=== PATIENT | female | born 1965 | race Caucasian/White ===

== ENCOUNTER 2022-12-18 17:16 | Observation (INO) ==
[2022-12-18] MEDS ORDERED: PIPERACILLIN/TAZOBACTAM 4.5 GM/120 ML BAG IV ONE (18:46)
[2022-12-18] MEDS ORDERED: SODIUM CHLORIDE 0.9% 1000ML 1,000 ML IV ONE (18:46)
[2022-12-18 18:53] LABS: Basophils # (auto) 0.04 K/uL (0-0.2); Basophils % (auto) 0.3 %; Eosinophils # (auto) 0.02 K/uL (0-0.50); Eosinophils % (auto) 0.2 %; Hematocrit (blood only) 40.4 % (37.0-47.0); Hemoglobin 14.5 g/dl (12.0-16.0); Immature Granulocytes # (auto) 0.04 K/uL (0.01-0.20); Immature Granulocytes % (auto) 0.3 %; Lymphocytes # (auto) 1.55 K/uL (1.2-3.4); Lymphocytes % (auto) 13.2 %; Mean Corpuscular Hemoglobin 31.2 pg (25.0-34.0); Mean Corpuscular Hgb Conc 35.9 g/dL (32.0-36.0); Mean Corpuscular Volume 86.9 fL (80.0-100.0); Mean Platelet Volume 9.6 fL (9.4-12.4); Monocytes # (auto) 0.78 K/uL (0.11-0.59); Monocytes % (auto) 6.6 %; Neutrophils % (auto) 79.4 %; Platelet Count 252 K/uL (130-400); RDW Standard Deviation 38.5 fL (36.4-46.3); Red Blood Count 4.65 M/uL (4.20-5.40); White Blood Count 11.73 K/ul (4.8-10.8)
--- NOTE | 2022-12-18 18:53 | Emergency Department Note ---
History of Present Illness General Chief complaint: Infection Stated complaint: INFECTION S/P LUMPECTOMY Time Seen by Provider: 12/18/22 18:35 Source: patient Mode of arrival: ambulatory Limitations: no limitations History of Present Illness Maximum Pain Intensity: 6 This patient a 57-year-old female who comes in after having a fever and flulike symptoms. She had a lumpectomy 3 weeks ago at [facility] in [place] she had follow-up with her surgeon on December 14 and told things look well Monday night into Monday she had a fever. She had some discharge from the wound site. She does have a history of breast cancer on the right which had surgery and radiation this was diagnosed in October 2022. This is a new diagnosis on the left she has yet to start chemo or radiation but that is the plan. She said kolton t she put some hydrogen peroxide and some clear gauze on it. Her temperature was up to 100.2 and she took ibuprofen and at 8:30 in the morning she felt like she had joint aches all over and she had a headache that got better with her temperature coming down. She went to [facility] and they started her on 2 antibiotics doxycycline and clinda. She took the antibiotics at 1230 and went to bed. She is increasing temperature increasing swelling she says it feels hot in the left breast. It 6 out of 10 at baseline but 8 or 9 out of 10 if palpation or movement. No nausea vomiting she did feel somewhat lightheaded. No chest pain Home Medications Medication Instructions Recorded Confirmed Type bupropion HCl 150 mg tablet,12 hr 150 mg PO BID 12/18/22 12/18/22 History sustained-release cholecalciferol (vitamin D3) 25 0 mcg PO DAILY 12/18/22 12/18/22 History mcg (1,000 unit) capsule (Vitamin D3) escitalopram oxalate 20 mg tablet 20 mg PO DAILY 12/18/22 12/18/22 History (Lexapro) exemestane 25 mg tablet 25 mg PO DAILY 12/18/22 12/18/22 History magnesium citrate 100 mg tablet 0 mg PO DAILY 12/18/22 12/18/22 History trazodone 50 mg tablet 50 mg PO HS 12/18/22 12/18/22 History Allergies Allergy/AdvReac Type Severity Reaction Status Date / Time No Known Allergies Allergy Verified 12/18/22 19:15 Past Med/Surg History Medical History (Updated 12/18/22 @ 23:18 by Brendan Krause MD) Breast cancer Depression Sciatica Surgical History History of lumpectomy Right breast October 2022 Left breast 11/28/2022 Family History Other Cancer Social History (Updated 12/18/22 @ 20:22 by Rosetta Miranda DO) Smoking Status: Never smoker Second Hand Exposure: No; Hx Alcohol Use: Yes Hx Substance Use: No Preferred Language: Greek Communication Ability: Effective 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 Denies history of diabetes or cardiac disease. She is on no blood thinners. Has a history of diverticulosis and abdominal surgery she had a history of MRSA in the past as well. Review of Systems A total of 10 systems reviewed and were otherwise negative Physical Exam Vital Signs Vital Signs - 24 hr 12/18/22 17:33 12/18/22 19:46 12/18/22 20:00 Temperature 37.1 C Temperature Source Temporal Artery Scan Pulse Rate 102 H 82 85 Respiratory Rate 18 20 20 Respiratory Effort / Characteristics Non-Labored Spontaneous Respiratory Depth Normal Respiratory Pattern Regular Blood Pressure 132/84 136/80 Blood Pressure Mean 100 98 Blood Pressure Position Sitting Pulse Oximetry 96 96 97 Oxygen Delivery Method Room Air Room Air Room Air Sepsis Recent Fever Within 48 Hours No Sepsis New/Unexplained Change in Mental Status No Sepsis Action Taken by Nursing No Action Required General: Well developed well nourished middle-age female who appears in no acute distress, breathing comfortably on room air. Normal speech HEENT: Normal cephalic atraumatic. Pupils are equal round and reactive to light. Extraocular movements are intact. Oropharynx is pink with moist mucous membranes. No swelling of the mouth lips or tongue. Neck: Supple with a midline trachea. No meningeal signs or stiffness, no JVD or bruits. No Stridor. Chest (performed in the presence of a hydraulics engineer): Clear to auscultation bilaterally. No wheezes or rhonchi. No increased work of breathing. She has a well-healed healing incision in the left breast. It is very tender is indurated is mildly warm. There is no pus at this point but she says they collected some earlier when she was at [facility] Heart: Regular rate and rhythm without murmurs or gallops. Abdomen: Soft nontender, nondistended without rebound guarding or rigidity. Extremities: No cyanosis clubbing or edema. No calf tenderness or assymetry Spine/Back. Non tender to palpation. No CVA tenderness Skin: Good turgor without rashes. Neurologic exam: Cranial nerves two through 12 are intact. Motor and sensation are intact and symmetrical throughout. Course Administered Medications Bupropion HCl (Bupropion Sr 150 Mg Tabcr) 150 mg PO BID JESUS Stop: 01/17/23 21:41 Last Admin: 12/18/22 23:18 Dose: Not Given Documented By: Ibuprofen (Ibuprofen 600 Mg Tab) 600 mg PO Q6H PRN PRN Reason: Pain Stop: 01/17/23 21:41 Last Admin: 12/18/22 22:18 Dose: 600 mg Documented By: Miscellaneous (Exemestane~Order Awaiting Action) 1 each N/A QS JESUS Stop: 01/17/23 22:29 Last Admin: 12/19/22 00:31 Dose: Not Given Documented By: Admin: 12/18/22 23:18 Dose: Not Given Documented By: Trazodone HCl (Trazodone Hcl 50 Mg Tab) 50 mg PO HS JESUS Stop: 01/17/23 21:41 Last Admin: 12/18/22 22:18 Dose: 50 mg Documented By: Discontinued Medications Enoxaparin Sodium (Enoxaparin Inj 40 Mg/0.4 Ml Syr) 40 mg SQ HS JESUS Stop: 01/17/23 21:59 Last Admin: 12/19/22 00:33 Dose: Not Given Documented By: Sodium Chloride (Nss 1000ml) 1,000 mls @ 999 mls/hr IV .Q1H1M ONE Stop: 12/18/22 19:46 Last Infusion: 12/18/22 21:03 Dose: 0 mls/hr Documented By: Admin: 12/18/22 19:35 Dose: 999 mls/hr Documented By: JAY Piperacillin Sod/Tazobactam Sod (Zosyn) 4.5 gm in 120 mls @ 240 mls/hr IV NOW ONE Stop: 12/18/22 19:15 Last Infusion: 12/18/22 21:03 Dose: 0 mls/hr Documented By: Admin: 12/18/22 19:35 Dose: 240 mls/hr Documented By: JAY Vancomycin HCl 1,500 mg/ (Sodium Chloride) 530 mls @ 200 mls/hr IV NOW ONE Stop: 12/18/22 22:15 Last Admin: 12/19/22 00:33 Dose: Not Given Documented By: Vancomycin HCl 1,500 mg/ (Sodium Chloride) 530 mls @ 200 mls/hr IV ONE ONE; Protocol Stop: 12/19/22 00:38 Last Admin: 12/18/22 22:18 Dose: 200 mls/hr Documented By: Medical Decision Making Differential Diagnosis Sepsis, postop complication, abscess, electrolyte or metabolic abnormality, trauma. Medical Records Attestation: I reviewed the patient's medical records. Home Medications Current Medication List: was personally reviewed by me Laboratory Data Attestation: I reviewed the patient's lab results. 12/18/22 18:34 12/18/22 18:34 Lab Results 12/18/22 12/18/22 12/18/22 Range/Units 18:34 18:34 18:34 WBC 11.73 H (4.8-10.8) K/ul RBC 4.65 (4.20-5.40) M/uL Hgb 14.5 (12.0-16.0) g/dl Hct 40.4 (37.0-47.0) % MCV 86.9 (80.0-100.0) fL MCH 31.2 (25.0-34.0) pg MCHC 35.9 (32.0-36.0) g/dL RDW Std Deviation 38.5 (36.4-46.3) fL RDW Coeff of Monty 12.0 (11.5-14.5) % Plt Count 252 (130-400) K/uL MPV 9.6 (9.4-12.4) fL Immature Gran % (Auto) 0.3 % Neut % (Auto) 79.4 % Lymph % (Auto) 13.2 % Dukes % (Auto) 6.6 % Eos % (Auto) 0.2 % Baso % (Auto) 0.3 % Neut # (Auto) 9.30 H (1.40-6.50) K/uL Lymph # (Auto) 1.55 (1.2-3.4) K/uL [place]ukes # (Auto) 0.78 H (0.11-0.59) K/uL Eos # (Auto) 0.02 (0-0.50) K/uL Baso # (Auto) 0.04 (0-0.2) K/uL Immature Gran # (Auto) 0.04 (0.01-0.20) K/uL Sodium 139 (136-145) mmol/L Potassium 3.6 (3.5-5.1) mmol/L Chloride 106 (98-107) mmol/L Carbon Dioxide 25 (21-32) mmol/L Anion Gap 8 (3-11) BUN 13 (6-23) mg/dl Creatinine 0.79 (0.6-1.2) mg/dl Est Cr Clr Drug Dosing 74.9 ml/min Est GFR ( Amer) 95.0 ml/min Est GFR (Non-Af Amer) 81.9 ml/min BUN/Creatinine Ratio 16.5 (10-20) Glucose 123 H (70-99(Fasting)) mg/dl Lactate 0.9 (0.4-2.0) mmol/L Calcium 9.7 (8.5-10.1) mg/dl Total Bilirubin 1.1 H (0.2-1.0) mg/dl AST 33 (13-39) U/L ALT 38 (7-52) U/L Alkaline Phosphatase 84 (34-104) U/L Total Protein 6.9 (6.0-8.3) gm/dl Albumin 4.3 (3.4-5.0) gm/dl Globulin 2.6 (2.5-4.0) gm/dl Albumin/Globulin Ratio 1.7 (0.9-2) HCG, Qual (Negative) SARS-CoV-2 (PCR) (Negative) Influenza Type A (PCR) (Neg) Influenza Type B (PCR) (Neg) RSV (RT-PCR) (Neg) 12/18/22 12/18/22 Range/Units 18:34 19:10 WBC (4.8-10.8) K/ul RBC (4.20-5.40) M/uL Hgb (12.0-16.0) g/dl Hct (37.0-47.0) % MCV (80.0-100.0) fL MCH (25.0-34.0) pg MCHC (32.0-36.0) g/dL RDW Std Deviation (36.4-46.3) fL RDW Coeff of Monty (11.5-14.5) % Plt Count (130-400) K/uL MPV (9.4-12.4) fL Immature Gran % (Auto) % Neut % (Auto) % Lymph % (Auto) % Dukes % (Auto) % Eos % (Auto) % Baso % (Auto) % Neut # (Auto) (1.40-6.50) K/uL Lymph # (Auto) (1.2-3.4) K/uL Dukes # (Auto) (0.11-0.59) K/uL Eos # (Auto) (0-0.50) K/uL Baso # (Auto) (0-0.2) K/uL Immature Gran # (Auto) (0.01-0.20) K/uL Sodium (136-145) mmol/L Potassium (3.5-5.1) mmol/L Chloride (98-107) mmol/L Carbon Dioxide (21-32) mmol/L Anion Gap (3-11) BUN (6-23) mg/dl Creatinine (0.6-1.2) mg/dl Est Cr Clr Drug Dosing ml/min Est GFR ( Amer) ml/min Est GFR (Non-Af Amer) ml/min BUN/Creatinine Ratio (10-20) Glucose (70-99(Fasting)) mg/dl Lactate (0.4-2.0) mmol/L Calcium (8.5-10.1) mg/dl Total Bilirubin (0.2-1.0) mg/dl AST (13-39) U/L ALT (7-52) U/L Alkaline Phosphatase (34-104) U/L Total Protein (6.0-8.3) gm/dl Albumin (3.4-5.0) gm/dl Globulin (2.5-4.0) gm/dl Albumin/Globulin Ratio (0.9-2) HCG, Qual Negative (Negative) SARS-CoV-2 (PCR) NEGATIVE (Negative) Influenza Type A (PCR) Negative (Neg) Influenza Type B (PCR) Negative (Neg) RSV (RT-PCR) Negative (Neg) Imaging Data Attestation: I personally reviewed and interpreted this imaging study as follows: My Impression: Chest x-rayno acute infiltrate, failure, pneumothorax seen. Radiologist's Impression: Chest X-Ray 12/18/22 18:54 XR chest 1V portable CLINICAL HISTORY: Fever. COMPARISON STUDY: No previous studies for comparison. FINDINGS: Lung volumes are normal. No pneumothorax or pleural effusion present. Linear left basilar opacity favors atelectasis. There is no consolidation to suggest pneumonia. Cardiac size is at the upper limits of normal. There is no evidence for pulmonary edema. Bilateral axillary/breast surgical clips are incidentally noted. IMPRESSION: No acute cardiopulmonary findings. ACT 112: Negative or not required by law. Electronically signed by: Fede Stewart M.D. 12/18/2022 7:30 PM ECG Data Attestation: I personally reviewed and interpreted this ECG as follows: Indication: + chest pain Rate (beats per minute): 82 Rhythm: + normal sinus ECG Intervals/blocks: + Normal QRS, + Normal QT and + Normal NM ECG Boyce: + Normal ECG ST segments: + Normal ST segments ECG Findings: no PACs or no PVCs Comparison ECG Date: no prior available MDM Narrative This patient comes in as described above. She is having pain in her left chest where she had incision sites she has had fever and body aches am concerned about sepsis/infection. IV access was established , she was hydrated with 1 L IV normal saline bolus blood cultures were obtained as well as a lactic acid and multiple blood testing. She was reassessed frequently she was COVID tested. I did give her Zosyn 4.5 mg IV. I also added vancomycin IV. She does have a history of MRSA. We did culture the wound though there is no drainage at this point. There apparently was drainage earlier that medics breast cultured her white count is elevated lactic acid is not. She does have a temperature but has normal vital signs otherwise. She was hydrated with an IV normal saline and remained stable. She has no significant electrolyte or metabolic abnormalities. I have consulted the hospitalist to see her in the ER for these measures she is ordered an ultrasound will be admitting the patient. Had lab test negative for COVID and influenza. I did consult and discussed the case with Dr. Miranda who saw the patient in ER for these. Continuous cardiac monitoring: Orders placed in EMR for continuous cardiac monitoring. Hdez interpretation patient noted to be normal sinus rhythm rate of 85. Impression & Plan Breast cancer, Wound infection following procedure, Sepsis, Lab test negative for COVID-19 virus, Not currently Discharge Plan Visit Data Chief Complaint: Infection Stated Complaint: INFECTION S/P LUMPECTOMY ED Provider: Vic Luna Discharge Problem: Breast cancer, Wound infection following procedure, Sepsis, Lab test negative for COVID-19 virus, Not currently Patient Disposition: Admitted As Inpatient Discharge Instructions Interventions: ED Discharge Assessment Last Done: 12/18/22 21:08 : Breast cancer Qualifiers: Breast location: unspecified site of breast Estrogen receptor status: unspecified Patient sex: female Laterality: left Qualified Code(s): C50.912 - Malignant neoplasm of unspecified site of left female breast Sepsis Qualifiers: Sepsis type: sepsis due to unspecified organism Sepsis acute organ dysfunction status: unspecified Qualified Code(s): A41.9 - Sepsis, unspecified organism
[2022-12-18 19:09] LABS: Albumin Globulin Ratio 1.7 (0.9-2); Albumin Level 4.3 gm/dl (3.4-5.0); BUN Creatinine Ratio 16.5 (10-20); Bilirubin,Total 1.1 mg/dl (0.2-1.0); Calcium 9.7 mg/dl (8.5-10.1); Creatinine Clr Calc Pharmacy 74.9 ml/min; Est GFR (Non-African American) 81.9 ml/min; Globulin 2.6 gm/dl (2.5-4.0); Potassium 3.6 mmol/L (3.5-5.1); Total Protein 6.9 gm/dl (6.0-8.3)
[2022-12-18 19:23] LABS: Pregnancy Test, Serum Negative (Negative)
--- NOTE | 2022-12-18 19:32 | XRay Report ---
XR chest 1V portable CLINICAL HISTORY: Fever. COMPARISON STUDY: No previous studies for comparison. FINDINGS: Lung volumes are normal. No pneumothorax or pleural effusion present. Linear left basilar o pacity favors atelectasis. There is no consolidation to suggest pneumonia. Cardiac size is at the upp er limits of normal. There is no evidence for pulmonary edema. Bilateral axillary/breast surgical cli ps are incidentally noted. IMPRESSION: No acute cardiopulmonary findings. ACT 112: Negative or not required by law. Electronically signed by: Fede Stewart M.D. 12/18/2022 7:30 PM
[2022-12-18] MEDS ORDERED: VANCOMYCIN CONSULT ACTIVE PRN ×2 (19:37→21:42)
[2022-12-18] MEDS ORDERED: VANCOMYCIN HCL 1,500 MG in SODIUM CHLORIDE 0.9% 500 ML IV ONE ×2 (19:37→22:00)
[2022-12-18 19:56] LABS: Influenza A virus by PCR Negative (Neg); Influenza B virus by PCR Negative (Neg); RSV by PCR Negative (Neg); SARS CoV2 RNA(COVID-19) Ceph NEGATIVE (Negative)
--- NOTE | 2022-12-18 20:30 | History & Physical Report ---
Date of Service December 18, 2022 Assessment & Plan (1) Wound infection following procedure: Plan: 57-year-old female with history of breast cancer status post left lumpectomy performed on 11/28/2022 now presenting with 1 day of progressive pain, swelling and redness of the left breast as well as purulent drainage from the surgical site. Patient was seen at [facility] earlier today where pus was expressed from the wound, culture obtained. She was given doxycycline and clindamycin. Patient took 1 dose of oral antibiotics thus far. Worsening symptoms throughout the evening. Elevated temperature prior to arrival to 100.2. Patient tachycardic at 102. Elevated WBC = 11.73. Has reported history of MRSA skin and soft tissue infection following a stingray wound to her left foot. Observation to medical Follow cultures Delvis area of redness and date to monitor for progression of infection Obtain breast ultrasound to assess for abscess Continue vancomycin Tylenol and ibuprofen as needed for pain (2) Breast cancer: Plan: Patient with history of right breast cancer status post lobectomy, chemo and radiation now on exemestane estrogen jeffry. Recently diagnosed with cancer in the left breast as well. Had lumpectomy performed on November 28, 2022. Patient follows with oncology at [facility] in [place]. Continue exemestane (3) Depression: Plan: Patient with history of depression. Well-controlled Continue bupropion 150 mg p.o. twice daily Continue Lexapro 20 mg p.o. daily Continue trazodone 50 mg p.o. nightly F/E/NHep-Lock, electrolytes within normal limits, regular diet as tolerated ProphylaxisLovenox 40 mg daily Codefull per discussion with patient Dispositionobservation to medical floor History of Present Illness Chief Complaint: left breast infection Primary Care Provider: NO PCP Merari Alvarado is a pleasant 57-year-old female with history of right breast cancer status post lobectomy, chemotherapy and radiation on exemestane maintenance treatment, recently diagnosed with left breast cancer in October 2022. Patient had a lumpectomy performed on the left breast on November 28, 2022 in [place]. The procedure went well with no complications. She saw her surgeon in follow-up on December 14, 2022 and noted that the lumpectomy site was mildly infected. Patient was instructed to keep the site clean, perform local wound care and monitor the area. Tonight patient developed worsening pain, redness, swelling of her left breast as well as an elevated temperature to 100.2. She also notes clear/pink-colored drainage from her surgical wound. She was seen at [facility] and pus was expressed from the wound. Culture sent. Patient was started on doxycycline and clindamycin. She took her antibiotics this evening however, she continued to have progression of her pain, redness and swelling as well as elevated body temperature therefore she came to the ER. Patient additionally complaining of diffuse joint pain. Otherwise she denies chest pain, cough, shortness of breath. Denies abdominal pain, nausea, vomiting, diarrhea. No additional complaints at this time In the ER she is afebrile, mildly tachycardic at 102 bpm, blood pressure stable, no respiratory distress. Adequate oxygenation on room air. ER course: Normal saline x1 L Zosyn 4.5 g IV Vancomycin ordered and is currently being infused Wound culture ordered to be collected Allergies Allergy/AdvReac Type Severity Reaction Status Date / Time No Known Allergies Allergy Verified 12/18/22 19:15 Home Medications Medication Instructions Recorded Confirmed Type bupropion HCl 150 mg tablet,12 hr 150 mg PO BID 12/18/22 12/18/22 History sustained-release cholecalciferol (vitamin D3) 25 0 mcg PO DAILY 12/18/22 12/18/22 History mcg (1,000 unit) capsule (Vitamin D3) escitalopram oxalate 20 mg tablet 20 mg PO DAILY 12/18/22 12/18/22 History (Lexapro) exemestane 25 mg tablet 25 mg PO DAILY 12/18/22 12/18/22 History magnesium citrate 100 mg tablet 0 mg PO DAILY 12/18/22 12/18/22 History trazodone 50 mg tablet 50 mg PO HS 12/18/22 12/18/22 History Past Med/Surg History Medical History (Updated 12/18/22 @ 20:26 by Rosetta Miranda DO) Breast cancer Depression Sciatica Surgical History History of lumpectomy Right breast October 2022 Left breast 11/28/2022 Family History Other Cancer Social History (Updated 12/18/22 @ 20:22 by Rosetta Miranda DO) Smoking Status: Never smoker Hx Alcohol Use: No Hx Substance Use: No Preferred Language: [place] Feels Safe at Home: Yes Review of Systems Review of Systems: All systems reviewed & are unremarkable except as noted in HPI & below Physical Exam Physical Exam: General: patient resting comfortably, NAD, non-toxic in appearance, AA&O x 4 HEENT: NC/AT, PERRL, EOMI, anicteric sclera, conjunctiva without injection, external ear normal to inspection and nontender, nares patent, moist mucus membranes, dentition intact, no oropharyngeal lesions, neck supple, trachea midline, no LAD, no thyromegaly, no JVD Heart: +S1/S2, regular, no m/r/g Left breast with well-healing incision with some scabbing, minimal serous drainage, no pus, breast is erythematous, swollen, tender Lungs: equal air entry bilaterally, no rales/rhonchi/wheezes Abd: +BS, soft, NT/ND, no masses/organomegaly/ascites Ext: warm, 2+ pulses in UE/LE bilaterally, no clubbing/cyanosis or edema Neuro: nonfocal, patient AA&O x 4, speech intact, no facial droop, moving all extremities on command with equal strength 5/5 Results & Data Results & Data ([facility]) Vital Signs (Past 12 Hours) Vital Signs Temp Pulse Resp BP Pulse Ox O2 Del Method 12/18/22 17:33 37.1 C 102 H 18 132/84 96 Room Air Laboratory Results Laboratory Results WBC 11.73 K/ul (4.8-10.8) H 12/18/22 18:34 RBC 4.65 M/uL (4.20-5.40) 12/18/22 18:34 Hgb 14.5 g/dl (12.0-16.0) 12/18/22 18:34 Hct 40.4 % (37.0-47.0) 12/18/22 18:34 MCV 86.9 fL (80.0-100.0) 12/18/22 18:34 MCH 31.2 pg (25.0-34.0) 12/18/22 18:34 MCHC 35.9 g/dL (32.0-36.0) 12/18/22 18:34 RDW Std Deviation 38.5 fL (36.4-46.3) 12/18/22 18:34 RDW Coeff of Monty 12.0 % (11.5-14.5) 12/18/22 18:34 Plt Count 252 K/uL (130-400) 12/18/22 18:34 MPV 9.6 fL (9.4-12.4) 12/18/22 18:34 Immature Gran % (Auto) 0.3 % 12/18/22 18:34 Neut % (Auto) 79.4 % 12/18/22 18:34 Lymph % (Auto) 13.2 % 12/18/22 18:34 [place] % (Auto) 6.6 % 12/18/22 18:34 Eos % (Auto) 0.2 % 12/18/22 18:34 Baso % (Auto) 0.3 % 12/18/22 18:34 Neut # (Auto) 9.30 K/uL (1.40-6.50) H 12/18/22 18:34 Lymph # (Auto) 1.55 K/uL (1.2-3.4) 12/18/22 18:34 [place] # (Auto) 0.78 K/uL (0.11-0.59) H 12/18/22 18:34 Eos # (Auto) 0.02 K/uL (0-0.50) 12/18/22 18:34 Baso # (Auto) 0.04 K/uL (0-0.2) 12/18/22 18:34 Immature Gran # (Auto) 0.04 K/uL (0.01-0.20) 12/18/22 18:34 Sodium 139 mmol/L (136-145) 12/18/22 18:34 Potassium 3.6 mmol/L (3.5-5.1) 12/18/22 18:34 Chloride 106 mmol/L (98-107) 12/18/22 18:34 Carbon Dioxide 25 mmol/L (21-32) 12/18/22 18:34 Anion Gap 8 (3-11) 12/18/22 18:34 BUN 13 mg/dl (6-23) 12/18/22 18:34 Creatinine 0.79 mg/dl (0.6-1.2) 12/18/22 18:34 Est Cr Clr Drug Dosing 74.9 ml/min 12/18/22 18:34 Est GFR ( Amer) 95.0 ml/min 12/18/22 18:34 Est GFR (Non-Af Amer) 81.9 ml/min 12/18/22 18:34 BUN/Creatinine Ratio 16.5 (10-20) 12/18/22 18:34 Glucose 123 mg/dl (70-99(Fasting)) H 12/18/22 18:34 Lactate 0.9 mmol/L (0.4-2.0) 12/18/22 18:34 Calcium 9.7 mg/dl (8.5-10.1) 12/18/22 18:34 Total Bilirubin 1.1 mg/dl (0.2-1.0) H 12/18/22 18:34 AST 33 U/L (13-39) 12/18/22 18:34 ALT 38 U/L (7-52) 12/18/22 18:34 Alkaline Phosphatase 84 U/L (34-104) 12/18/22 18:34 Total Protein 6.9 gm/dl (6.0-8.3) 12/18/22 18:34 Albumin 4.3 gm/dl (3.4-5.0) 12/18/22 18:34 Globulin 2.6 gm/dl (2.5-4.0) 12/18/22 18:34 Albumin/Globulin Ratio 1.7 (0.9-2) 12/18/22 18:34 HCG, Qual Negative (Negative) 12/18/22 18:34 SARS-CoV-2 (PCR) NEGATIVE (Negative) 12/18/22 19:10 Influenza Type A (PCR) Negative (Neg) 12/18/22 19:10 Influenza Type B (PCR) Negative (Neg) 12/18/22 19:10 RSV (RT-PCR) Negative (Neg) 12/18/22 19:10 Impressions Chest X-Ray 12/18/22 18:54 XR chest 1V portable CLINICAL HISTORY: Fever. COMPARISON STUDY: No previous studies for comparison. FINDINGS: Lung volumes are normal. No pneumothorax or pleural effusion present. Linear left basilar opacity favors atelectasis. There is no consolidation to suggest pneumonia. Cardiac size is at the upper limits of normal. There is no evidence for pulmonary edema. Bilateral axillary/breast surgical clips are incidentally noted. IMPRESSION: No acute cardiopulmonary findings. ACT 112: Negative or not required by law. Electronically signed by: Fede Stewart M.D. 12/18/2022 7:30 PM ECG Additional Comments: EKG with normal sinus rhythm at 82, normal axis, W[place] = 144, QRS = 82, QTc = 427, nonspecific T wave abnormalities in anterior leads. No prior EKGs available Code Status & VTE Plan VTE Prophylaxis Plan VTE Prophylaxis will be ordered: Yes PG Care Time/CCT Total # of Minutes Spent Total Time Spent with Patient: Total time spent is greater than 50% in coordination of care (as documented) at patient's floor/unit and/or counseling patient: Coding Level of Care Code 54741 INT INP/OBS CARE 2/55MIN Diagnoses Wound infection following procedure T81.49XA Breast cancer C50.919 Depression F32.A
[2022-12-18] MEDS ORDERED: ACETAMINOPHEN 325 MG TAB PO PRN (21:42)
[2022-12-18] MEDS ORDERED: ENOXAPARIN INJ 40 MG/0.4 ML SYR SQ SCH (22:00)
[2022-12-18] MEDS: traZODone HCL 50 MG TAB PO SCH (22:18)
[2022-12-18] MEDS: IBUPROFEN 600 MG TAB PO PRN (22:18)
--- NOTE | 2022-12-18 23:12 | Surgery Consultation ---
Date of Consultation December 18, 2022 Assessment & Plan (1) Left breast abscess: pt is a 57 year-old female who was admitted to hospital for left breast abscess, pt had left breast lumpectomy at other hospital on 11/28/2022. pt presents to Er with one day history left breast pain, fever 38.6, IMP: left breast abscess, plan, I recommend to do I/D left breast abscess, D/W benefits, risks and alternatives of the surgery, but pt wants to have surgery done tomorrow, pt had food at 8:30 PM today, pt is full stomach, NPO now, IV antibiotic, will do surgery tomorrow, History of Present Illness Reason for Consultation: left breast abscess Requesting Physician: Rosetta Miranda DO Attending Physician: Rosetta Miranda DO History of Present Illness History of Present Illness Chief Complaint: left breast infection Primary Care Provider: NO PCP Merari Alvarado is a pleasant 57-year-old female with history of right breast cancer status post lobectomy, chemotherapy and radiation on exemestane maintenance treatment, recently diagnosed with left breast cancer in October 2022. Patient had a lumpectomy performed on the left breast on November 28, 2022 in [place]. The procedure went well with no complications. She saw her surgeon in follow-up on December 14, 2022 and noted that the lumpectomy site was mildly infected. Patient was instructed to keep the site clean, perform local wound care and monitor the area. Tonight patient developed worsening pain, redness, swelling of her left breast as well as an elevated temperature to 100.2. She also notes clear/pink-colored drainage from her surgical wound. She was seen at [facility] and pus was expressed from the wound. Culture sent. Patient was started on doxycycline and clindamycin. She took her antibiotics this evening however, she continued to have progression of her pain, redness and swelling as well as elevated body temperature therefore she came to the ER. Patient additionally complaining of diffuse joint pain. Otherwise she denies chest pain, cough, shortness of breath. Denies abdominal pain, nausea, vomiting, diarrhea. No additional complaints at this time In the ER she is afebrile, mildly tachycardic at 102 bpm, blood pressure stable, no respiratory distress. Adequate oxygenation on room air. ER course: Normal saline x1 L Zosyn 4.5 g IV Vancomycin ordered and is currently being infused Wound culture ordered to be collected I ( Brendan Krause MD ) got a call for consult left breast abscess, I reviewed pt's H/P, labs and U/S study with pt, Allergies Allergy/AdvReac Type Severity Reaction Status Date / Time No Known Allergies Allergy Verified 12/18/22 19:15 Home Medications Medication Instructions Recorded Confirmed Type bupropion HCl 150 mg tablet,12 hr 150 mg PO BID 12/18/22 History sustained-release cholecalciferol (vitamin D3) 25 0 mcg PO DAILY 12/18/22 12/18/22 History mcg (1,000 unit) capsule (Vitamin D3) escitalopram oxalate 20 mg tablet 20 mg PO DAILY 12/18/22 History (Lexapro) exemestane 25 mg tablet 25 mg PO DAILY 12/18/22 12/18/22 History magnesium citrate 100 mg tablet 0 mg PO DAILY 12/18/22 12/18/22 History trazodone 50 mg tablet 50 mg PO HS 12/18/22 12/18/22 History Past Med/Surg History Medical History(Updated 12/18/22 @ 20:26 by Rosetta Miranda DO) Breast cancer Depression Sciatica Surgical History History of lumpectomy Right breast October 2022 Left breast 11/28/2022 Family History Other Cancer Social History(Updated 12/18/22 @ 20:22 by Rosetta Miranda DO) Smoking Status: Never smoker Hx Alcohol Use: No Hx Substance Use: No Preferred Language: Danish Feels Safe at Home: Yes Review of Systems Review of Systems: All systems reviewed & are unremarkable except as noted in HPI & below Allergies Allergy/AdvReac Type Severity Reaction Status Date / Time No Known Allergies Allergy Verified 12/18/22 19:15 Home Medications Medication Instructions Recorded Confirmed Type bupropion HCl 150 mg tablet,12 hr 150 mg PO BID 12/18/22 12/18/22 History sustained-release cholecalciferol (vitamin D3) 25 0 mcg PO DAILY 12/18/22 12/18/22 History mcg (1,000 unit) capsule (Vitamin D3) escitalopram oxalate 20 mg tablet 20 mg PO DAILY 12/18/22 12/18/22 History (Lexapro) exemestane 25 mg tablet 25 mg PO DAILY 12/18/22 12/18/22 History magnesium citrate 100 mg tablet 0 mg PO DAILY 12/18/22 12/18/22 History trazodone 50 mg tablet 50 mg PO HS 12/18/22 12/18/22 History Patient History Medical History (Updated 12/18/22 @ 23:18 by Brendan Krause MD) Breast cancer Depression Sciatica Surgical History History of lumpectomy Right breast October 2022 Left breast 11/28/2022 Family History Other Cancer Social History (Updated 12/18/22 @ 20:22 by Rosetta Miranda DO) Smoking Status: Never smoker Second Hand Exposure: No; Hx Alcohol Use: Yes Hx Substance Use: No Preferred Language: Danish Communication Ability: Effective Data Capture Specialist Required: No Beliefs That Will Affect Care: None Current Living Situation: Other Feels Safe at Home: Yes Assistive Devices: None Review of Systems Constitutional: as per Subjective / HPI Eyes: as per Subjective / HPI Respiratory: as per Subjective / HPI Cardiovascular: as per Subjective / HPI Gastrointestinal: as per Subjective / HPI Musculoskeletal: as per Subjective / HPI Neurologic: as per Subjective / HPI Psychiatric: as per Subjective / HPI (Depression) Endocrine: as per Subjective / HPI left breast cancer Hematologic / Lymphatic: as per Subjective / HPI Physical Exam Constitutional: WD/WN, vitals as above Eyes: PERRL, conjunctivae normal, anicteric sclerae Neck: trachea midline, no thyromegaly Respiratory: normal respiratory effort, lungs clear to auscultation Cardiovascular: RRR, no murmur, no edema Chest (Breasts): Additional Comments: nurse at bedside, left breast- some redness and tenderness at left breast at 11 o'clock, no drainage, the incision intact, Gastrointestinal (Abdomen): normal bowel sounds, soft, nontender, no hepatosplenomegaly Musculoskeletal: no cyanosis or clubbing, extremities motor strength 5/5 Neurologic: patellar DTR's 2+ bilat, sensation intact Psychiatric: A+Ox3, euthymic affect Results & Data ([facility]) Vital Signs (Past 12 Hours) Vital Signs Temp Pulse Pulse Resp BP BP Pulse Ox 12/18/22 21:43 38.6 C H 88 18 125/80 96 12/18/22 20:00 85 20 136/80 97 12/18/22 19:46 82 20 96 12/18/22 17:33 37.1 C 102 H 18 132/84 96 O2 Del Method 12/18/22 21:43 Room Air 12/18/22 20:00 Room Air 12/18/22 19:46 Room Air 12/18/22 17:33 Room Air Laboratory Results Abnormal lab results 12/18/22 12/18/22 Range/Units 18:34 18:34 WBC 11.73 H (4.8-10.8) K/ul Neut # (Auto) 9.30 H (1.40-6.50) K/uL [place] # (Auto) 0.78 H (0.11-0.59) K/uL Glucose 123 H (70-99(Fasting)) mg/dl Total Bilirubin 1.1 H (0.2-1.0) mg/dl Diagnostic Findings U/S - left breast abscess
[2022-12-18] MEDS: buPROPion SR 150 MG TABCR PO SCH (23:18)
[2022-12-19] MEDS: PIPERACILLIN/TAZOBACTAM 3.375 GM in DEXTROSE 5% 100 ML IV SCH ×3 (03:38→19:48)
[2022-12-19] MEDS: VANCOMYCIN HCL 1,000 MG in SODIUM CHLORIDE 0.9% 250 ML IV SCH ×2 (06:31→17:08)
[2022-12-19] MEDS: IBUPROFEN 600 MG TAB PO PRN ×2 (07:21→19:49)
--- NOTE | 2022-12-19 07:41 | Ultrasound Report ---
US breast LT limited CLINICAL HISTORY: recent lumpectomy - cellulitis - ?abscess TECHNIQUE: Real-time grayscale sonographic images of the left breast were obtained. Comparison: None available at the time of this dictation. FINDINGS/IMPRESSION: Complex fluid collection is seen at the point of interest at 11:00 of the left b reast. This measures 6.0 x 5.8 x 2.4 cm and extends to the incision site at the skin surface. There i s mild surrounding Doppler flow. Findings are compatible with abscess in this patient with cellulitis . ACT 112: Negative or not required by law. Electronically signed by: Finn Markham M.D. 12/19/2022 7:40 AM
[2022-12-19] MEDS: ESCITALOPRAM OXALATE 20 MG TAB PO SCH (07:58)
--- NOTE | 2022-12-19 08:00 | Anesthesiology Consultation ---
Date of Service December 19, 2022 Assessment & Plan (1) Encounter for pre-operative examination: Chart Review Chart Review: entry level account executive initiated History Surgery Operation Date: 12/19/22 08:20 Proposed Procedures p Left Breast Abscess Incision and Drainage - Brendan Krause MD Height/Weight Height: 5 ft 2 in Weight: 79.5 kg Allergies Allergy/AdvReac Type Severity Reaction Status Date / Time No Known Allergies Allergy Verified 12/18/22 19:15 Medications Home Medications Medication Instructions Recorded Confirmed Last Taken bupropion HCl 150 mg tablet,12 hr 150 mg PO BID 12/18/22 12/18/22 12/18/22 08:00 sustained-release cholecalciferol (vitamin D3) 25 0 mcg PO DAILY 12/18/22 12/18/22 12/18/22 mcg (1,000 unit) capsule (Vitamin D3) escitalopram oxalate 20 mg tablet 20 mg PO DAILY 12/18/22 12/18/22 12/18/22 (Lexapro) exemestane 25 mg tablet 25 mg PO DAILY 12/18/22 12/18/22 12/18/22 magnesium citrate 100 mg tablet 0 mg PO DAILY 12/18/22 12/18/22 12/18/22 trazodone 50 mg tablet 50 mg PO HS 12/18/22 12/18/22 12/18/22 Active Medications Generic Name Dose Route Start Last Admin Trade Name Freq PRN Reason Stop Dose Admin Bupropion HCl 150 mg 12/18/22 21:42 12/18/22 23:18 Bupropion Sr 150 Mg Tabcr PO 01/17/23 21:41 Not Given BID JESUS Escitalopram Oxalate 20 mg 12/19/22 09:00 12/19/22 07:58 Escitalopram Oxalate 20 Mg Tab PO 01/18/23 08:59 20 mg DAILY JESUS Administration Piperacillin Sod/Tazobactam 115 mls @ 28.75 mls/hr 12/19/22 04:00 12/19/22 07:18 Sod 3.375 gm/ Dextrose IV 12/26/22 03:59 Infused Q8H JESUS Infusion Protocol Vancomycin HCl 1,000 mg/ 270 mls @ 200 mls/hr 12/19/22 06:00 12/19/22 07:56 Sodium Chloride IV 12/26/22 05:59 Infused Q12H JESUS Infusion Protocol Ibuprofen 600 mg 12/18/22 21:42 12/19/22 07:21 Ibuprofen 600 Mg Tab PO 01/17/23 21:41 600 mg Q6H PRN Administration Pain Miscellaneous 1 each 12/18/22 22:30 12/19/22 07:55 Exemestane~Order Awaiting Action N/A 01/17/23 22:29 Not Given QS JESUS Trazodone HCl 50 mg 12/18/22 21:42 12/18/22 22:18 Trazodone Hcl 50 Mg Tab PO 01/17/23 21:41 50 mg HS JESUS Administration Past Medical History Medical History Breast cancer Depression Sciatica Past Family History Family History Other Cancer Past Surgical History Surgical History History of lumpectomy Right breast October 2022 Left breast 11/28/2022 Social History Smoking Status: Never smoker Do You Dip or Chew Tobacco: No Hx Alcohol Use: Yes alcohol intake frequency: holidays/special occasions only Hx Substance Use: No Physical Exam Vital Signs Last Vital Signs Temp 98.2 F 12/19/22 07:27 Pulse 78 12/19/22 07:27 Resp 18 12/19/22 07:27 BP 133/80 12/19/22 07:27 Pulse Ox 93 12/19/22 07:27 O2 Del Method 12/19/22 07:27 Testing Laboratory Results 12/18/22 18:34 12/18/22 18:34 12/18/22 21:50 Gram Stain - Final Breast,Left Electrocardiogram Date: 12/18/22 Normal sinus rhythm, rate 82 bpm Nonspecific T wave abnormality Abnormal ECG No previous ECGs available Chest X-Ray Date: 12/18/22 Findings: + NAD
--- NOTE | 2022-12-19 08:01 | Hospitalist Progress Note ---
Date of Service December 19, 2022 Assessment & Plan (1) Wound infection following procedure: Plan: 57-year-old female with history of breast cancer status post left lumpectomy performed on 11/28/2022 now presenting with 1 day of progressive pain, swelling and redness of the left breast as well as purulent drainage from the surgical site. Patient was seen at [facility] earlier today where pus was expressed from the wound, culture obtained. She was given doxycycline and clindamycin. Patient took 1 dose of oral antibiotics thus far. Worsening symptoms throughout the evening. Elevated temperature prior to arrival to 100.2. Patient was tachycardic at 102. Elevated WBC = 11.73. Currently afebrile and heart rate 75. 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 Observation to medical Follow cultures (Blood and Wound) Delvis area of redness and date to monitor for progression of infection, appears redness has progressed outside of the marked edges Breast ultrasound revealed - Complex fluid collection is seen and measured 6.0 x 5.8 x 2.4 cm and extends to the incision site at the skin surface. There is mild surrounding Doppler flow. Findings are compatible with abscess in this patient with cellulitis Continue Zosyn and Vancomycin Tylenol and ibuprofen as needed for pain For surgical incision and drainage today (2) Breast cancer: Plan: Patient with history of right breast cancer status post lobectomy, chemo and radiation now on exemestane estrogen jeffry. Recently diagnosed with cancer in the left breast as well. Had lumpectomy performed on November 28, 2022. Patient follows with oncology at [facility] [place] in [place]. Continue exemestane (3) Depression: Plan: Patient with history of depression. Well-controlled Continue bupropion 150 mg p.o. twice daily Continue Lexapro 20 mg p.o. daily Continue trazodone 50 mg p.o. nightly Plan F/E/NHep-Lock, electrolytes within normal limits, NPO at midnight ProphylaxisLovenox 40 mg daily NPO for surgery today [place] per discussion with patient Dispositionobservation to medical floor Admission and Anticipated Discharge Date Admission Date: December 18, 2022 Subjective Patient is awake sitting upright in bed. Patient states she continues to have redness and warmth over her incision site but has not had any further drainage today. Review of Systems Review of Systems: Patient denies any cough, SOB, Dyspnea. She denies any abdominal pain or nausea or vomiting. She admits to fevers, chills, myalgias, hx of arthritis and back pain. She admits to skin redness, warmth and discharge from her incision site. All other ROS negative unless stated +as above. Physical Exam Constitutional: WD/WN, vitals as above Neck: trachea midline, no thyromegaly Respiratory: normal respiratory effort, lungs clear to auscultation Cardiovascular: Rate/Rhythm: regular rate and regular rhythm Heart Sounds: normal S1 and normal S2; no murmur Extremities: normal capillary refill; no calf tenderness and no edema Chest (Breasts): Additional Comments: Left breast incision healing with some mild scabbing, no drainage or pus. Surrounding skin warm erythematous and tender to palpation Gastrointestinal (Abdomen): normal bowel sounds, soft, nontender, no hepatosplenomegaly Skin: As above for exam left breast Neurologic: PERRL, EOMI, accommodation nl, no face palsy, no dysarthria Psychiatric: A+Ox3, euthymic affect Results & Data Results & Data ([facility]) Vital Signs (Past 12 Hours) Vital Signs Temp Pulse Pulse Resp BP BP Pulse Ox 12/19/22 07:27 36.8 C 78 18 133/80 93 12/19/22 00:31 36.9 C 12/18/22 23:36 38 C H 12/18/22 21:43 38.6 C H 88 18 125/80 96 12/18/22 20:00 85 20 136/80 97 O2 Del Method 12/19/22 07:27 Room Air 12/19/22 00:31 12/18/22 23:36 12/18/22 21:43 Room Air 12/18/22 20:00 Room Air Laboratory Results Abnormal lab results 12/18/22 12/18/22 Range/Units 18:34 18:34 WBC 11.73 H (4.8-10.8) K/ul Neut # (Auto) 9.30 H (1.40-6.50) K/uL [place] # (Auto) 0.78 H (0.11-0.59) K/uL Glucose 123 H (70-99(Fasting)) mg/dl Total Bilirubin 1.1 H (0.2-1.0) mg/dl Diagnostic Findings Chest X-Ray 12/18/22 18:54 XR chest 1V portable CLINICAL HISTORY: Fever. COMPARISON STUDY: No previous studies for comparison. FINDINGS: Lung volumes are normal. No pneumothorax or pleural effusion present. Linear left basilar opacity favors atelectasis. There is no consolidation to suggest pneumonia. Cardiac size is at the upper limits of normal. There is no evidence for pulmonary edema. Bilateral axillary/breast surgical clips are incidentally noted. IMPRESSION: No acute cardiopulmonary findings. ACT 112: Negative or not required by law. Electronically signed by: Fede Stewart M.D. 12/18/2022 7:30 PM Breast Ultrasound 12/18/22 20:12 US breast LT limited CLINICAL HISTORY: recent lumpectomy - cellulitis - ?abscess TECHNIQUE: Real-time grayscale sonographic images of the left breast were obtained. Comparison: None available at the time of this dictation. FINDINGS/IMPRESSION: Complex fluid collection is seen at the point of interest at 11:00 of the left breast. This measures 6.0 x 5.8 x 2.4 cm and extends to the incision site at the skin surface. There is mild surrounding Doppler flow. Findings are compatible with abscess in this patient with cellulitis. ACT 112: Negative or not required by law. Electronically signed by: Finn Markham M.D. 12/19/2022 7:40 AM PG Care Time/CCT Total # of Minutes Spent Total Time Spent with Patient: Total time spent is greater than 50% in coordination of care (as documented) at patient's floor/unit and/or counseling patient: Coding Level of Care Code 50463 SUB INP/OBS CARE 2/35MIN Diagnoses Wound infection following procedure T81.49XA Breast cancer C50.912 Breast location: unspecified site of breast Estrogen receptor status: unspecified Laterality: left Patient sex: female Depression F32.A (1) Breast cancer Breast location: unspecified site of breast Estrogen receptor status: unspecified Laterality: left Patient sex: female Qualified Code(s): C50.912 - Malignant neoplasm of unspecified site of left female breast
[2022-12-19 08:35] LABS: Hematocrit (blood only) 37.2 % (37.0-47.0); Hemoglobin 13.2 g/dl (12.0-16.0); Mean Corpuscular Hemoglobin 31.4 pg (25.0-34.0); Mean Corpuscular Hgb Conc 35.5 g/dL (32.0-36.0); Mean Corpuscular Volume 88.4 fL (80.0-100.0); Mean Platelet Volume 9.9 fL (9.4-12.4); Platelet Count 215 K/uL (130-400); RDW Coefficient of Variation 12.3 % (11.5-14.5); RDW Standard Deviation 39.7 fL (36.4-46.3); Red Blood Count 4.21 M/uL (4.20-5.40); White Blood Count 10.79 K/ul (4.8-10.8)
[2022-12-19 08:45] LABS: BUN Creatinine Ratio 14.4 (10-20); Calcium 8.9 mg/dl (8.5-10.1); Creatinine Clr Calc Pharmacy 65.7 ml/min; Est GFR (African American) 81.1 ml/min; Potassium 3.6 mmol/L (3.5-5.1)
--- NOTE | 2022-12-19 08:47 | Electrocardiogram Report ---
Test Reason : Blood Pressure : / mmHG Vent. Rate : 082 BPM Atrial Rate : 082 BPM P-R Int : 144 ms QRS Dur : 082 ms QT Int : 366 ms P-R-T Axes : 045 -06 063 degrees QTc Int : 427 ms Normal sinus rhythm Nonspecific T wave abnormality Abnormal ECG No previous ECGs available Confirmed by Terry Torres ([id number]) on 12/19/2022 8:47:16 AM Referred By: REFERRED SELF Confirmed By:Terry Torres
[2022-12-19] MEDS ORDERED: [UNRECOGNIZED DRUG - OTHER] PO SCH (09:00)
[2022-12-19] MEDS: buPROPion SR 150 MG TABCR PO SCH ×2 (09:39→20:24)
[2022-12-19] MEDS ORDERED: MIDAZOLAM HCL 1 MG/ML 2ML VIAL ONE (11:06)
[2022-12-19] MEDS ORDERED: fentaNYL citrate 100 MCG/2 ML VIAL ONE (11:07)
[2022-12-19] MEDS ORDERED: ONDANSETRON INJ 2 MG/ML 2 ML VIAL IV PRN (12:51)
[2022-12-19] MEDS ORDERED: fentaNYL citrate 100 MCG/2 ML VIAL IV PRN (12:51)
[2022-12-19] MEDS ORDERED: ATROPINE SULFATE 0.1 MG/ML 10ML SYR IV PRN (12:51)
[2022-12-19] MEDS ORDERED: ePHEDrine sulfate 50 MG/ML AMP IV PRN (12:51)
--- NOTE | 2022-12-19 13:25 | History & Physical Bridge Note ---
Date of Service December 19, 2022 History & Physical Bridge Note I have examined the patient, reviewed the History & Physical and in the interval since the performance of the History & Physical I have noted the following changes of clinical significance: no changes noted, some drainage from incision site of left breast, I recommend to do I/D left breast abscess, D/W benefits, risks and alternatives of the surgery, the risks- infection, bleeding recurrence, scar, pain, pt understood, she agreed with surgery, she signed informed consent, I answered all questions,
[2022-12-19] MEDS ORDERED: VANCOMYCIN HCL 1000MG/20ML VIAL ONE (13:51)
[2022-12-19] MEDS ORDERED: BACITRACIN OINT 15 GM TUBE ONE (13:57)
[2022-12-19] MEDS ORDERED: PROPOFOL IV EMULSION 10 MG/ML 20 ML VIAL IV ONE (14:09)
[2022-12-19] MEDS ORDERED: LIDOCAINE 2% MPF LOCAL 5 ML VIAL INFIL ONE (14:09)
[2022-12-19] MEDS ORDERED: ONDANSETRON INJ 2 MG/ML 2 ML VIAL ONE (14:09)
--- NOTE | 2022-12-19 14:39 | Anesthesiology Progress Note ---
Date of Service December 19, 2022 Anesthesia Post Procedure Vital Signs Vital Signs: Temp Pulse Pulse Pulse Resp BP BP 12/19/22 14:30 80 21 120/66 12/19/22 14:20 79 19 121/68 12/19/22 14:13 97.7 F 90 16 120/73 12/19/22 12:39 98.8 F 75 20 140/76 12/19/22 07:27 98.2 F 78 18 133/80 12/19/22 00:31 98.4 F 12/18/22 23:36 100.4 F H 12/18/22 21:43 101.5 F H 88 18 125/80 12/18/22 20:00 85 20 136/80 12/18/22 19:46 82 20 12/18/22 17:33 98.8 F 102 H 18 132/84 Pulse Ox O2 Del Method O2 Flow Rate 12/19/22 14:30 96 Room Air 12/19/22 14:20 96 Oxymask 5 12/19/22 14:13 97 Oxymask 5 12/19/22 12:39 96 Room Air 12/19/22 07:27 93 Room Air 12/19/22 00:31 12/18/22 23:36 12/18/22 21:43 96 Room Air 12/18/22 20:00 97 Room Air 12/18/22 19:46 96 Room Air 12/18/22 17:33 96 Room Air Pain Intensity Left Breast: Pain Intensity: 3 Transfer of Care Handoff Completed per policy Notes Mental Status: alert / awake / arousable and participated in evaluation Patient Amnestic to Procedure: Yes Nausea / Vomiting: adequately controlled Pain: adequately controlled Airway Patency, RR, SpO2: stable & adequate BP & HR: stable & adequate Hydration State: stable & adequate Anesthetic Complications: no major complications apparent and Pt Satisfied with anesthetic care
[2022-12-19] MEDS ORDERED: oxyCODONE/ACETAMINOPHEN 5mg/325mg TAB PO PRN (15:03)
[2022-12-19] MEDS ORDERED: oxyCODONE HCL IR 5 MG TAB (IMMEDIATE RELEASE) PO PRN (15:20)
--- NOTE | 2022-12-19 15:51 | Operative Report (OR) ---
DATE OF PROCEDURE: 12/19/2022 PREOPERATIVE DIAGNOSIS: Left breast abscess. POSTOPERATIVE DIAGNOSIS: Left breast abscess. OPERATION: Incision and drainage, left breast abscess. SURGEON: Brendan Krause MD ANESTHESIA: General. ESTIMATED BLOOD LOSS: About 3 mL. FINDINGS: Left-sided breast abscess, wound culture sent. COMPLICATIONS: None. INDICATIONS OF THE PROCEDURE: This is a 57-year-old female who had a left-sided breast lumpectomy at an outside hospital about a couple of weeks ago and now the patient comes to this hospital for left- sided breast abscess. I recommended to do incision and drainage of left-sided breast abscess. I did talk to the patient about the benefits, risks, alternate procedure. I indicated the risks may inclu de, but not limited to, such as bleeding, infection, recurrence, may need more procedure, scar, pain, deformation of the breast, the patient understands. The patient signed informed consent and I answe red all questions. DETAILS OF PROCEDURE: After we identified the patient and verified the procedure, we brought the patient to the OR, put the patient in the supine position on the OR table. The patient received SCDs on bilateral legs to prev ent DVT. Also, the patient received 3.375 g Zosyn IV for prophylactic antibiotic and the patient rec eived general anesthesia without difficulty. Left-sided breast was prepped and draped in routine rakesh rile fashion after time-out. I opened all the incision by using a 15 blade, removed some suture, and immediately pus came out and a large cavity on the left subareolar. The cavity size about 5 x 6 cm. Once I completely removed all the pus, we sent the wound culture also. Hemostasis obtained. I used vancomycin 1 g in 1 L of saline to flush through the abscess cavity. Again, hemostasis obtained. T hen, I used a 1/2-inch Kerlix to pack the wound. Then, I put the dressing on. The patient tolerated the procedure well. All instrument, needle, sponge counts were correct x2 at the end of the case. The patient was transferred to recovery room in stable condition. After the procedure, I did talk to the patient about the OR finding and the procedure we did, she understands. Job ID: [id number]
[2022-12-19] MEDS: traZODone HCL 50 MG TAB PO SCH (20:23)
[2022-12-20] MEDS: VANCOMYCIN HCL 1,000 MG in SODIUM CHLORIDE 0.9% 250 ML IV SCH (05:13)
[2022-12-20] MEDS: PIPERACILLIN/TAZOBACTAM 3.375 GM in DEXTROSE 5% 100 ML IV SCH ×2 (05:13→11:18)
[2022-12-20] MEDS: ESCITALOPRAM OXALATE 20 MG TAB PO SCH (08:12)
[2022-12-20] MEDS ORDERED: CHOLECALCIFEROL 1,000 UNITS 25 MCG TAB PO SCH (09:00)
[2022-12-20] MEDS ORDERED: NON-FORMULARY MEDICATION (Magnesium Citrate 100 mg Tablet) PO SCH (09:00)
[2022-12-20 09:07] LABS: Basophils # (auto) 0.03 K/uL (0-0.2); Basophils % (auto) 0.4 %; Eosinophils # (auto) 0.16 K/uL (0-0.50); Eosinophils % (auto) 2.1 %; Hematocrit (blood only) 37.6 % (37.0-47.0); Immature Granulocytes # (auto) 0.02 K/uL (0.01-0.20); Immature Granulocytes % (auto) 0.3 %; Lymphocytes # (auto) 1.38 K/uL (1.2-3.4); Lymphocytes % (auto) 18.1 %; Mean Corpuscular Hemoglobin 31.1 pg (25.0-34.0); Mean Corpuscular Hgb Conc 34.6 g/dL (32.0-36.0); Mean Platelet Volume 9.7 fL (9.4-12.4); Monocytes # (auto) 0.54 K/uL (0.11-0.59); Monocytes % (auto) 7.1 %; Neutrophils # (auto) 5.48 K/uL (1.40-6.50); Platelet Count 205 K/uL (130-400); RDW Coefficient of Variation 12.5 % (11.5-14.5); RDW Standard Deviation 41.1 fL (36.4-46.3); Red Blood Count 4.18 M/uL (4.20-5.40); White Blood Count 7.61 K/ul (4.8-10.8)
[2022-12-20 09:22] LABS: Creatinine Clr Calc Pharmacy 74.9 ml/min; Est GFR (Non-African American) 81.9 ml/min
[2022-12-20] MEDS: buPROPion SR 150 MG TABCR PO SCH (09:27)
--- NOTE | 2022-12-20 12:18 | Surgery Progress Note ---
Date of Service December 20, 2022 Assessment & Plan (1) Left breast abscess: Plan: POD # 1 s/p incision and drainage of left breast abscess avss postop pain controlled no n,v Plan: will plan for packing change this afternoon and teach patient for at home packin g changes every other day She will need po antibiotics on discharge, to continue Clinda and doxy will need to follow up with surgeon in [place] continue medical management Dr. Krause has seen patient and agrees with above. Admission and Anticipated Discharge Date Admission Date: December 18, 2022 Subjective feeling okay, having drainage from the breast on the dressing no fevers or chills pain controlled tolerating diet would like to be discharged today, traveling to [place] tomorrow am Results & Data ([facility]) Vital Signs (Past 12 Hours) Vital Signs Temp Pulse Pulse Resp BP Pulse Ox O2 Del Method 12/20/22 11:19 36.8 C 80 16 136/84 94 Room Air 12/20/22 07:47 36.9 C 63 16 121/75 95 Room Air 12/20/22 03:03 36.6 C 74 20 99/61 L 92 Room Air Laboratory Results 12/20/22 12/20/22 Range/Units 08:34 08:34 WBC 7.61 (4.8-10.8) K/ul RBC 4.18 L (4.20-5.40) M/uL Hgb 13.0 (12.0-16.0) g/dl Hct 37.6 (37.0-47.0) % MCV 90.0 (80.0-100.0) fL MCH 31.1 (25.0-34.0) pg MCHC 34.6 (32.0-36.0) g/dL RDW Std Deviation 41.1 (36.4-46.3) fL RDW Coeff of Monty 12.5 (11.5-14.5) % Plt Count 205 (130-400) K/uL MPV 9.7 (9.4-12.4) fL Immature Gran % (Auto) 0.3 % Neut % (Auto) 72.0 % Lymph % (Auto) 18.1 % [place] % (Auto) 7.1 % Eos % (Auto) 2.1 % Baso % (Auto) 0.4 % Neut # (Auto) 5.48 (1.40-6.50) K/uL Lymph # (Auto) 1.38 (1.2-3.4) K/uL [place] # (Auto) 0.54 (0.11-0.59) K/uL Eos # (Auto) 0.16 (0-0.50) K/uL Baso # (Auto) 0.03 (0-0.2) K/uL Immature Gran # (Auto) 0.02 (0.01-0.20) K/uL Creatinine 0.79 (0.6-1.2) mg/dl Est Cr Clr Drug Dosing 74.9 ml/min Est GFR ( Amer) 95.0 ml/min Est GFR (Non-Af Amer) 81.9 ml/min Microbiology 12/19/22 Unknown Gram Stain - Final Breast,Left Aerobic and Anaerobic Culture - Preliminary Staphylococcus species 12/18/22 21:50 Gram Stain - Final Breast,Left Wound Culture - Preliminary Staphylococcus species 12/18/22 18:34 Aerobic Blood Culture - Preliminary Blood No growth in Aerobic bottle after 24 hours. Anaerobic Blood Culture - Preliminary No growth in Anaerobic bottle after 24 hours. 12/18/22 18:49 Aerobic Blood Culture - Preliminary Blood No growth in Aerobic bottle after 24 hours. Anaerobic Blood Culture - Preliminary No growth in Anaerobic bottle after 24 hours.
--- NOTE | 2022-12-20 15:41 | Discharge Summary ---
Date of Service December 20, 2022 12/21/2022 9:[address] Krause, I called pt about wound culture report- resistant clindamycin, I recommend to start bactrim 800/160 one pill po bid x 10 days, pt will go to walk in clinic to get it once she arrived [place]. stop clinidamycin, do not let children to touch her wound, pt understood, I answered all questions, Admission HPI Per Admitting Provider Merari Alvarado is a pleasant 57-year-old female with history of right breast cancer status post lobectomy, chemotherapy and radiation on exemestane maintenance treatment, recently diagnosed with left breast cancer in October 2022. Patient had a lumpectomy performed on the left breast on November 28, 2022 in [place]. The procedure went well with no complications. She saw her surgeon in follow-up on December 14, 2022 and noted that the lumpectomy site was mildly infected. Patient was instructed to keep the site clean, perform local wound care and monitor the area. Tonight patient developed worsening pain, redness, swelling of her left breast as well as an elevated temperature to 100.2. She also notes clear/pink-colored drainage from her surgical wound. She was seen at [facility] and pus was expressed from the wound. Culture sent. Patient was started on doxycycline and clindamycin. She took her antibiotics this evening however, she continued to have progression of her pain, redness and swelling as well as elevated body temperature therefore she came to the ER. Patient additionally complaining of diffuse joint pain. Otherwise she denies chest pain, cough, shortness of breath. Denies abdominal pain, nausea, vomiting, diarrhea. No additional complaints at this time In the ER she is afebrile, mildly tachycardic at 102 bpm, blood pressure stable, no respiratory distress. Adequate oxygenation on room air. ER course: Normal saline x1 L Zosyn 4.5 g IV Vancomycin ordered and is currently being infused Admission Exam Per Admitting Provider General: patient resting comfortably, NAD, non-toxic in appearance, AA&O x 4 HEENT: NC/AT, PERRL, EOMI, anicteric sclera, conjunctiva without injection, external ear normal to inspection and nontender, nares patent, moist mucus membranes, dentition intact, no oropharyngeal lesions, neck supple, trachea midline, no LAD, no thyromegaly, no JVD Heart: +S1/S2, regular, no m/r/g Left breast with well-healing incision with some scabbing, minimal serous drainage, no pus, breast is erythematous, swollen, tender Lungs: equal air entry bilaterally, no rales/rhonchi/wheezes Abd: +BS, soft, NT/ND, no masses/organomegaly/ascites Ext: warm, 2+ pulses in UE/LE bilaterally, no clubbing/cyanosis or edema Neuro: nonfocal, patient AA&O x 4, speech intact, no facial droop, moving all extremities on command with equal strength 5/5 Principal Diagnosis Left breast abscess Left breast cancer Discharge Exam Constitutional WD/WN, vitals as above Eyes PERRL, conjunctivae normal, anicteric sclerae Neck trachea midline, no thyromegaly Respiratory normal respiratory effort, lungs clear to auscultation Cardiovascular RRR, no murmur, no edema Rate/Rhythm: regular rate and regular rhythm Heart Sounds: normal S1 and normal S2; no murmur Extremities: normal capillary refill; no calf tenderness and no edema Gastrointestinal (Abdomen) normal bowel sounds, soft, nontender, no hepatosplenomegaly Musculoskeletal no cyanosis or clubbing, extremities motor strength 5/5 Skin Surgical dressing over left breast clean and dry Neurologic PERRL, EOMI, accommodation nl, no face palsy, no dysarthria Psychiatric A+Ox3, euthymic affect Discharge Data Allergies Allergy/AdvReac Type Severity Reaction Status Date / Time No Known Allergies Allergy Verified 12/18/22 19:15 Consultations 12/18/22 19:53 ED Decision to Admit Stat 12/18/22 22:36 Consult General Surgery Routine Procedures Performed Operation Date: 12/19/22 08:20 Actual Procedures p Left Breast Abscess Incision and Drainage(Left) - Brendan Krause MD Ordered Studies 12/18/22 20:12 US breast LT limited Urgent Hospital Course (1) Wound infection following procedure: 57-year-old female with recent diagnosis of Left breast cancer status post left lumpectomy performed on 11/28/2022. Now presenting with 1 day of progressive pain, swelling and redness of the left breast as well as purulent drainage from the surgical site. Patient was seen at [facility] earlier 12/18/22 where pus was expressed from the wound, culture obtained. She was given doxycycline and clindamycin. Patient took 1 dose of oral antibiotics thus far. Worsening symptoms throughout the evening. And decided to mikey to the ER 12/18/22. Elevated temperature prior to arrival to 100.2. Patient was tachycardic at 102. Elevated WBC = 11.73. Currently afebrile and heart rate 77. 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 Follow cultures (Blood and Wound) Blood culture - NO Growth after 24 hoursx2 Wound Culture Preliminary + Staphylococcus species Patient aware will need to follow up on final cultures Marked area of redness and date to monitor for progression of infection, appears redness has progressed outside of the marked edges yesterday and was taken to the OR for I&D Breast ultrasound revealed - Complex fluid collection is seen and measured 6.0 x 5.8 x 2.4 cm and extends to the incision site at the skin surface. There is mild surrounding Doppler flow. Findings are compatible with abscess in this patient with cellulitis Was on Zosyn and Vancomycin while inpatient Tylenol and ibuprofen as needed for pain - will be discharged on Clindamycin and Doxycycline (patient already has prescription) - Surgery educated patient on dressing and packing care and changing q 2 days - Surgery placed instructions in the discharge Patient was aware typically would have patient continue to stay inpatient, but she has a family trip/flight planned for tomorrow She is not from this area and is traveling to [place] and then back home to [place], [place] She was instructed to call her family doctor, her surgeon and oncologist to have appointments as soon as she arrives back in [place]. (2) Breast cancer: Patient with history of right breast cancer status post lobectomy, chemo and radiation now on exemestane estrogen jeffry. Recently diagnosed with cancer in the left breast as well. Had lumpectomy performed on November 28, 2022. Patient follows with oncology at [facility] in [place]. Continue exemestane (3) Depression: Patient with history of depression. Well-controlled Continue bupropion 150 mg p.o. twice daily Continue Lexapro 20 mg p.o. daily Continue trazodone 50 mg p.o. nightly Plan Surgery removed packing and educated patient on how to do packing until can follow up with regular surgeon in [place] Total Time Total Time Spent Total Time Spent (In Minutes): 45 Discharge Plan Discharge Items Patient Disposition: Home - Self-Care Reason For Visit: LEFT BREAST INFECTION Discharge Diagnosis: Left breast abscess Activity: Per Instructions section Lifting: No more than 5 pounds Weightbearing: Full weightbearing Non-emergency contact: Primary Care Provider and Surgeon Call non-emergency contact if: you have any medication questions, your symptoms worsen, you have a fever, your wound has increased redness, your wound has increased drainage and your wound pain has increased Follow-up/Referrals: PCP,LOR [Primary Care Provider] - Diet: Regular Addtl Attending Provider Instructions: You were recently diagnosed with left breast cancer and had a lumpectomy and then developed an abscess. You were admitted and started on IV antibiotics and also evaluated by surgery who did and Incision and drain of the abscess. Surgical care instructions are below. You had a trip planned for tomorrow and are being discharged. You will need to follow surgery instructions below and also need to finish all the Doxycycline and Clindamycin antibiotics. (you already have these rxs) If you have fever, increased redness, drainage increased pain, you will need to get to the nearest emergency department. You will need to call your primary care doctor, your surgeon and your oncologist and to follow up appointments. Make your appointments for the day after you return back to [place]. You may also want to take probiotics while you are on the antibiotics. If you would develop any severe diarrhea, you will need also to go to the nearest ER. Your blood culture and your wound culture are not completed. You will need to follow up on this. When they are final, it is possible the antibiotics may need to be changed. Addtl Agricultural Research Technologist Provider Instructions: GENERAL SURGERY INSTRUCTIONS MEDICATIONS: Resume previous medications unless instructed otherwise by your surgeon. * May alternate extra strength Tylenol and Ibuprofen as needed for pain * 650 mg Tylenol every 6 hours as needed * Ibuprofen 600 mgm every 6 hours as needed (take with food and limit continuous duration for no more than 3 consecutive days) - Take antibiotics as prescribed for entire course SPECIAL CARE INSTRUCTIONS: * May shower in 24 hours. Shower prior to changed the packing so that it gets a little wet so it is easier to remove. Replace packing every other day. * Change outer dressings as needed to keep clean and dry * would recommend wearing a sports bra for compression/support daily and even at night time. * You will need a follow-up with your surgeon in [place]. Please call to get this set up for when you are traveling back from [place]. * if you develop fever, chills, increasing pain, increasing redness please go to emergency department for evaluation. Pending Studies at Discharge: Yes Studies:: wound and blood cultures are pending Stand-Alone Forms: My [facility] Medications and DC Order Prescriptions: Continued trazodone 50 mg Tablet 50 mg PO HS cholecalciferol (vitamin D3) [Vitamin D3] 25 mcg (1,000 unit) Capsule 0 mcg PO DAILY Rx Instructions: PT UNSURE OF STRENGTH escitalopram oxalate [Lexapro] 20 mg Tablet 20 mg PO DAILY magnesium citrate 100 mg Tablet 0 mg PO DAILY Rx Instructions: PT UNSURE OF STRENGTH bupropion HCl 150 mg tablet sustained-release 12 hr 150 mg PO BID exemestane 25 mg tablet 25 mg PO DAILY Discharge Orders: Discharge Order (Routine); Ordered 12/20/22 Ordered By: Yoon Hanson/Other Patient Handouts: Abscess Abx Tx Admission Data Admit Date/Time: 12/18/22 20:12 Attending Provider: Salvatore Ivey Admit Provider: Rosetta Miranda Primary Care Provider: PCP,NO Other Providers: Citlaly Saenz Other Interventions: Discharge Summary Assessment (RN) Last Done: 12/20/22 17:18 Supervising Physician Co-Signing Physician Notes Patient seen and examined at bedside. Obtained a brief physical examination and a history of current ilness. Discussed discharge plan with patient and [facility] Flaco De Souza reviewed above note and agree with it. Admitted for breast abscess. will discharge on antibiotics. Coding Level of Care Code HOSP INP/OBS DISCH >30 MIN Diagnoses Wound infection following procedure T81.49XA Breast cancer C50.912 Breast location: unspecified site of breast Estrogen receptor status: unspecified Laterality: left Patient sex: female Depression F32.A
[2022-12-21] MEDS ORDERED: VANCOMYCIN LEVEL SCH ×2 (05:30)
== END 2022-12-20 18:11 | disposition home or self-care (01) ==
LOC: 3N 17:16 → ED 17:16 → SUATTDRO 20:12 → 3N 21:08
DX: Z79.899 Other long term (current) drug therapy; Y83.8 Other surgical procedures as the cause of abnormal reaction of the patient, or of later complication, without mention of misadventure at the time of the procedure; N61.1 Abscess of the breast and nipple; T81.49XA Infection following a procedure, other surgical site, initial encounter; Z85.3 Personal history of malignant neoplasm of breast